=== PATIENT | female | born 1960 | race Caucasian/White ===

== ENCOUNTER 2017-01-25 09:21 | Day surgery (SDC) | payer BC ==
--- NOTE | 2017-01-24 18:04 | HP ---
PREOPERATIVE HISTORY AND PHYSICAL: DATE OF SURGERY/ADMISSION: 01/25/17 [facility] DATE OF OFFICE VISIT/ENCOUNTER: 01/24/17 ATTENDING SURGEON: Laura Delcid MD * (DICTATED BY CHRIS MEJIA) PROCEDURE: Bilateral wrists open reduction and internal fixation. CHIEF COMPLAINT: Bilateral wrist fractures. HISTORY OF PRESENT ILLNESS: This is a 56-year-old female who injured her bilateral wrists yesterday 01/23/17. She was washing windows when she slipped off the stool and landed on her bilateral outstretched hands causing fractures of both wrists. She was initially seen at [facility] and was referred to Dr. Delcid for further evaluation and treatment recommendations. At [place] she had x-rays taken and she was splinted in sugar-tong splints. She has been using [place] for pain relief at this time. She denies any numbness or tingling, but feels some prickling sensation in the left hand fingers. She denies any other injury. After review of x-rays and evaluation by Dr. Delcid it is recommended that the patient undergo bilateral wrists open reduction and internal fixation and the patient has consented to proceed. PAST MEDICAL HISTORY: Hypertension. PAST SURGICAL HISTORY: Appendectomy. CURRENT MEDICATIONS: 1. Lisinopril 20 mg daily. 2. Tylenol Sinus Congestion and Pain daytime p.r.n. ALLERGIES: ASPIRIN causes easy bleeding and bruising. FAMILY MEDICAL HISTORY: Pancreatic cancer, heart disease, rheumatoid arthritis , lupus. 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 She denies tobacco use and recreational drug use. She drinks alcohol on a rare social occasion. REVIEW OF SYSTEMS: General: Negative for fevers, chills, or night sweats. No known anesthesia problems in the past. HEENT: Negative for headache, lightheadedness, or syncopal episodes. Integumentary: Negative for abrasions, lesions, or open wounds. Cardiothoracic: Positive for hypertension. Negative for chest pain, palpitations, or edema. Pulmonary: Negative for shortness of breath with exertion, chronic cough, COPD. GI: Negative for nausea, vomiting, diarrhea, constipation or GERD. : Negative for nocturia, urinary frequency, urgency, history of UTIs, or kidney problems. Musculoskeletal: Positive for current complaint. Negative for chronic or intermittent back pain or history of other fractures. Neurological: Negative for paresthesias, numbness, history of seizure, stroke, or epilepsy. Endocrine: Negative for diabetes and thyroid issues. Hematologic: Negative for easy bruising, anemia, excessive bleeding, or history of DVT. Infectious Disease: Negative for history of MRSA , hepatitis C, or HIV. PHYSICAL EXAMINATION GENERAL: Well-developed, well-nourished, 56-year-old female in no acute distress. VITAL SIGNS: Height 5 feet 4 inches, weight 195 pounds. HEENT: Normocephalic, atraumatic. Pupils are equal, round, and reactive to light and accommodation. Extraocular movements are intact. NECK: Supple, no palpable lymph nodes. Throat is clear. PULMONARY: Lungs are clear to auscultation bilaterally. No wheezes, rales, or rhonchi. CARDIOVASCULAR: Regular rate and rhythm. S1, S2. No murmurs, rubs, or gallops. No edema. ABDOMEN: Positive bowel sounds, soft, nontender. NEUROLOGIC: Alert and oriented x3. Cranial nerves II through XII are intact. Sensation is intact to light touch. MUSCULOSKELETAL: On exam of her bilateral upper extremity, she has sugar-tong splints on each arm. Sensation is intact to light touch bilaterally. She can move her fingers and her fingers are well perfused. There is mild swelling in both hands. IMAGINING STUDIES: X-rays, AP, lateral, and oblique of both wrists showed displaced fractures of the distal radius, worse on the left than the right also ulnar styloid fractures bilaterally which are minimally displaced. IMPRESSION: Bilateral distal radius fractures. PLAN: The patient is scheduled to undergo bilateral wrists open reduction and internal fixation with Dr. Delcid on 01/25/17. She will return to the office in 10 to 14 days postop for followup and suture removal. A prescription for [place] was e- scribed to the patient's pharmacy for postoperative pain management. CHRIS MEJIA [id number]/[facility] #: [id number] MTDD
[2017-01-25] MEDS ORDERED: ceFAZolin 2 GM PREMIX (*) 50 ML IVPB ONE (09:58)
[2017-01-25] MEDS ORDERED: Sodium Citrate/Citric Acid* 15 ML UDC ONE (10:00)
[2017-01-25] MEDS ORDERED: Midazolam* 1 MG/ML 2 ML VIAL (2 MG) ONE (11:15)
[2017-01-25] MEDS ORDERED: KETAMINE HCL* 50 MG/ML 10 ML VIAL ONE (11:15)
[2017-01-25] MEDS ORDERED: fentaNYL* 50 MCG/ML 2 ML VIAL (100 MCG VIAL) ONE (11:15)
[2017-01-25] MEDS ORDERED: Propofol* 10 MG/ML 20 ML BTL IV PUSH ONE (11:17)
[2017-01-25] MEDS ORDERED: Dexamethasone IV* 4 MG/ML 1 ML (4 MG) ONE (11:17)
[2017-01-25] MEDS ORDERED: Succinylcholine* 20 MG/ML 10 ML VIAL ONE (11:17)
[2017-01-25] MEDS ORDERED: Lidocaine 2% PF * 5 ML VIAL ONE (11:17)
[2017-01-25] MEDS ORDERED: Bupivacaine 0.5% SDV PF* 30 ML VIAL ONE (11:24)
[2017-01-25] MEDS ORDERED: Ondansetron INJ* 2 MG/ML VIAL IV PRN (12:17)
[2017-01-25] MEDS ORDERED: fentaNYL* 50 MCG/ML 2 ML VIAL (100 MCG VIAL) IV PRN (12:17)
[2017-01-25] MEDS ORDERED: Ondansetron INJ* 2 MG/ML VIAL ONE (13:45)
[2017-01-25 14:48] VITALS: BP 148/75
--- NOTE | 2017-01-26 01:28 | OP ---
DATE OF OPERATION: 01/25/17 [facility] DATE OF : 64 SURGEON: Laura Delcid MD CASING FLUID TENDER: CHRIS Harry ANESTHESIOLOGIST: Korey Butler DO ANESTHESIA: General. PRE-OP DIAGNOSES: Bilateral distal radius fracture and bilateral ulnar styloid fracture. POST-OP DIAGNOSES: Bilateral distal radius fracture and bilateral ulnar styloid fracture. OPERATIVE PROCEDURE: Open reduction internal fixation of bilateral distal radius. ESTIMATED BLOOD LOSS: Zero on both sides. TOURNIQUET TIME: 29 minutes on the left, 25 minutes on the right. INDICATION FOR PROCEDURE: Stacia is a 56-year-old woman, who fell off a stool 2 days ago injuring her bilateral wrists. She has comminuted intraarticular fractures of both distal radius. She presents for ORIF. DESCRIPTION OF PROCEDURE: The patient was brought to the operating room, was given a general anesthetic, and placed in a supine position on the operating table with a tourniquet around her left upper arm. Skin of her left upper extremity was prepped and draped in the usual sterile fashion. The upper extremity was exsanguinated and the tourniquet elevated to 250 mmHg. A longitudinal incision was made overlying the FCR tendon. We dissected sharply through the superficial and deep portion of the FCR tendon sheath. The FPL muscle was then retracted and the pronator quadratus was incised and subperiosteally dissected off of the distal radius. There were multiple distal fracture fragments intra-articular, these were reduced with traction and manipulation. A 2.4 variable angle distal radius plate was secured with a proximal screw and then 1 distal screw in the position of the hardware and fracture fragments were checked on the C-arm in the AP and lateral views and found to be satisfactory. At least 3 intraarticular fragments were secured with distal screws and then 2 additional proximal screws were placed. The position of the hardware and fracture fragments were checked on the C-arm in the AP and lateral views and found to be satisfactory. The wound was irrigated. The pronator quadratus was repaired over the plate and then the FCR sheath deep portion was repaired with 2-0 Vicryl suture. The skin edges were reapproximated with 4-0 nylon suture and the wound was dressed with Xeroform, 4x4, Webril, and a volar splint. The tourniquet was released. We then prepped and draped the right wrist in the usual sterile fashion. The hand and forearm were exsanguinated and the tourniquet elevated to 250 mmHg. A longitudinal incision was made over the FCR tendon. We dissected sharply through the subcutaneous tissue and through the superficial and deep portion of the FCR tendon sheath. The FPL muscle was retracted and the pronator quadratus was incised and subperiosteally dissected off of the distal radius. The distal radius fracture was reduced and then secured with a 2.4 variable angle plate from the [employer] distal radius set with 1 proximal and 1 distal screw. The position of the hardware and fracture fragments were checked on the C-arm in the AP and lateral views and found to be satisfactory. We then secured the remainder of the fracture fragments, 2 intraarticular fragments, and total of 3 fragments with a total of 4 distal screws and 3 proximal screws. The position of the hardware and fracture fragments were checked on the C-arm in the AP and lateral views and found to be satisfactory. The pronator quadratus was repaired over the plate with 2-0 Vicryl suture after the wound was irrigated. The FCR tendon sheath was then repaired with 2-0 Vicryl and the skin edges were reapproximated with 4-0 nylon suture. The wound was dressed with Xeroform, 4x4 , Webril, and a volar splint. The patient tolerated the procedure well and was brought to the recovery room in good condition. [id number]/[facility] #: [id number] JIM
--- NOTE | 2017-01-26 10:17 | RAD ---
INDICATION: Bilateral wrist. No other history is provided. COMPARISONS: None relevant TECHNIQUE: Fluoroscopy was provided for a surgical procedure. Total fluoroscopy time is: 21 seconds FINDINGS: Spot images demonstrate internal fixation of the distal radius. IMPRESSION: FLUOROSCOPY WAS PROVIDED FOR A SURGICAL PROCEDURE CPT II Codes: 6045F
== END 2017-01-25 15:00 | disposition home or self-care (01) ==
LOC: OREAST 09:21
PROVIDERS: ATTEND Orthopaedic Surgery
DX: S52.572A Other intraarticular fracture of lower end of left radius, initial encounter for closed fracture (principal); S52.571A Other intraarticular fracture of lower end of right radius, initial encounter for closed fracture; S52.615A Nondisplaced fracture of left ulna styloid process, initial encounter for closed fracture; S52.614A Nondisplaced fracture of right ulna styloid process, initial encounter for closed fracture; W07.XXXA Fall from chair, initial encounter; Y92.9 Unspecified place or not applicable; I10 Essential (primary) hypertension
CPT/HCPCS: 76000; A9270-GY; C1713; C1776; J0330; J0690; J1100; J2250; J2405; J2704; J3010